=== PATIENT | female | born 1995 | race Caucasian/White ===

== ENCOUNTER 2018-10-02 11:28 | Observation (INO) ==
[2018-10-02] MEDS ORDERED: RINGER'S SOLUTION,LACTATED 1,000 ML IV PRN (11:34)
[2018-10-02 11:38] VITALS: BP 134/73
[2018-10-02] MEDS ORDERED: BETAMETHASONE ACETATE,SOD PHOS 6 MG/ML VIAL IM ONE (12:16)
--- NOTE | 2018-10-02 12:23 | HP ---
Chief Complaint - Chief Complaint Date of Service: 10/02/18 Time of Service: 12:07 Chief Complaint: contractions History of Present Illness: The patient was seen today for a routine obstetrical visit. She presented for her routine NST. NST was nonreactive and she was sent to labor and delivery for a BPP. The BPP score was 6/10 and for that reason she was sent to labor and delivery for further monitoring. She still reports ctx q 3 minutes. She denies loss of fluid or vaginal bleeding. Fetus is active. Medical History (Updated 10/02/18 @ 09:52 by Gini Quesada MD) Borderline personality disorder (Chronic) Anxiety disorder (Acute) Major depressive disorder, recurrent, moderate (Acute) DVT of lower extremity (deep venous thrombosis) Onset Date: 08/05/15 Right calf 08/05/15 left calf 03/29/18 GERD (gastroesophageal reflux disease) Onset Date: 06/26/15 Obesity Onset Date: 10/29/15 Wears glasses High risk medication use Onset Date: 10/29/15 Coumadin d/c @ 5 wks gestation Placenta previa Onset Date: ~2015 delivery Onset Date: 05/04/16 @ 36 wks. [facility] Yeast infection of the skin Onset Date: 10/29/15 Yeast infection of the vagina Onset Date: 05/06/15 Surgical History: Surgical History (Updated 04/11/18 @ 13:26 by Angela Coto LPN) Previous section Onset Date: 05/04/16 Placenta Previa-[facility] Family History: Family History (Updated 11/27/17 @ 17:41 by Madelin Carlin RN) Father Unknown family medical history Mother Asthma Social History: Preferred Language Singaporean Smoking Status Never smoker (Last Updated 10/02/18 @ 09:54 by Gini Quesada MD) No Social History Section defined Review Of Systems (GEN) - Review of Systems Generalized/Overall Review: Present: No Symptoms Reported Misc: All systems neg except as marked Immunizations: IMMUNIZATION HX Immunizations Up to Date Yes History of Influenza Vaccine No Allergies/Adverse Reactions: Allergies Allergy/AdvReac Type Severity Reaction Status Date / Time No Known Allergies Allergy Verified 10/02/18 11:32 Home Medications: HOME MEDICATIONS Acetaminophen [Tylenol] 325 mg PO PRN PRN 06/29/15 [Last Taken 06/28/15] enoxaparin 120 mg/0.8 mL subcutaneous syringe 120 mg SUBCUT Q12H 04/11/18 [Last Taken Unknown] vitamin,calcium,tiskxvqb-apej-ykzog acid tablet 1 tab PO DAILY 04/11/18 [Last Taken Unknown] buspirone 10 mg tablet 10 mg PO BID 04/18/18 [Last Taken Unknown] fluticasone 50 mcg/actuation nasal spray,suspension 2 spray ADEEL DAILY PRN 04/18/18 [Last Taken Unknown] loratadine 10 mg tablet 10 mg PO DAILY 04/18/18 [Last Taken Unknown] cyclobenzaprine 10 mg tablet 10 mg PO TID PRN #20 tab 09/11/18 [Last Taken Unknown] ranitidine 150 mg tablet 150 mg PO BID PRN #60 tab 09/11/18 [Last Taken Unknown] sertraline 50 mg tablet 100 mg PO DAILY tab 10/02/18 [Last Taken Unknown] Exam - Exam Vital Signs: Vital Signs - Last Taken Temp 36.0 C 10/02/18 11:36 Pulse 96 10/02/18 11:36 Resp 20 10/02/18 11:36 BP 134/73 10/02/18 11:36 Pulse Ox 98 10/02/18 11:36 Constitutional: Present: Alert, Oriented x3, Cooperative, No distress Respiratory: Present: chest non-tender, lungs clear, normal breath sounds Cardiovascular/Chest: Present: regular rate, rhythm, no murmur Abdomen: Present: soft, nontender, nondistended Extremity: Present: non-tender, no calf tenderness Skin Exam: Present: normal color, warm/dry, no cyanosis Appearance: Present: appropriate appearance Eye contact: Present: cooperative Thoughts: Present: normal thought pattern Assessment/Plan - Narrative Narrative: 22 year old @ 32w 6d with a concerning heart tracing and BPP 6/10. On the tracing there are no accelerations and there was a late deceleration one time. Variability is minimal. The patient is having ctx every 1-3 minutes. Cervix is closed. Give one dose of steroids since there could be a likelihood of delivery based on the heart rate tracing Will transfer to [facility] Follow-up as scheduled on if discharged from [facility]
--- NOTE | 2018-10-02 12:26 | DS ---
Transfer Discharge Summary - Diagnosis(s)/Problems (1) Non-reassuring heart rate with late deceleration Problem: Acute (2) contractions Problem: Acute - Course Description of Stay: The patient has been on the monitored for about an hour. There are no accelerations, the variability is minimal, and there was a late deceleration. BPP was 6/10. For that reason the patient was transferred to [facility]. Procedures Performed: none - Medications Medications: Active Medications Lactated Ringer's (Lactated Ringers) 1,000 mls @ 999 mls/hr IV .Q1H1M PRN PRN Reason: HYDRATION Stop: 11/01/18 11:35 Last Admin: 10/02/18 11:54 Dose: 999 mls/hr Documented by: - Disposition Disposition: Home self-care Condition: Stable
[2018-10-02] MEDS ORDERED: DEXTROSE 5%-LACTATED RINGERS 1,000 ML IV PRN (13:04)
== END 2018-10-02 15:29 | disposition short-term general hospital (02) ==
LOC: OB 11:28 → OBCLINIC 11:28
PROVIDERS: ADMIT Obstetrics & Gynecology; ATTEND Obstetrics & Gynecology
CPT/HCPCS: 59025; 96372

== ENCOUNTER 2018-10-07 00:34 | Inpatient (IN) ==
[2018-10-07 01:05] LABS: Hematocrit 35.2 % (37.0-47.0); Hemoglobin 11.7 gm/dL (12.5-16.0); Mean Cell Volume 88.4 fl (78-100); Mean Corpuscular Hemoglobin 29.4 pg (27-31); Mean Corpuscular Hgb Conc 33.2 g/dl (32-36); Mean Platelet Volume 10.9 fl (8-12.5); Neutrophil # 9.2 K/mm3 (1.3-6.0); Neutrophil % 78.5 % (42-75.0); Platelet Count 150 K/mm3 (150-450); Red Blood Count 3.98 M/mm3 (4.2-5.4); Red Cell Distribution Width 14.5 % (11.5-14.0); White Blood Count 11.7 K/mm3 (4.0-10.5)
[2018-10-07] MEDS ORDERED: OXYTOCIN 20 UNITS in RINGER'S SOLUTION,LACTATED 1,000 ML IV ONE ×2 (01:09→02:37)
[2018-10-07] MEDS ORDERED: RINGER'S SOLUTION,LACTATED 1,000 ML IV PRN ×2 (01:09)
[2018-10-07] MEDS ORDERED: ceFAZolin SODIUM 3 GM in DEXTROSE 5 % IN WATER 100 ML IV ONE ×2 (01:09)
--- NOTE | 2018-10-07 01:09 | HP ---
Chief Complaint - Chief Complaint Date of Service: 10/07/18 Time of Service: 00:52 Chief Complaint: Large amount of vaginal bleeding and loss of fluid, contractions History of Present Illness: The patient is a 22 year old @ 33w 4d who presented from home complaining of a large amount of bleeding at home as well as a large amount of loss of fluid. She reports regular contractions every 2-3 minutes. Fetus is active. Medical History (Updated 10/02/18 @ 12:26 by Gini Quesada MD) Borderline personality disorder (Chronic) Anxiety disorder (Acute) Major depressive disorder, recurrent, moderate (Acute) DVT of lower extremity (deep venous thrombosis) Onset Date: 08/05/15 Right calf 08/05/15 left calf 03/29/18 GERD (gastroesophageal reflux disease) Onset Date: 06/26/15 Obesity Onset Date: 10/29/15 Wears glasses High risk medication use Onset Date: 10/29/15 Coumadin d/c @ 5 wks gestation Placenta previa Onset Date: ~2015 delivery Onset Date: 05/04/16 @ 36 wks. [facility] Yeast infection of the skin Onset Date: 10/29/15 Yeast infection of the vagina Onset Date: 05/06/15 Surgical History: Surgical History (Updated 10/02/18 @ 12:23 by Gini Quesada MD) Previous section Onset Date: 05/04/16 Placenta Previa-[facility] Family History: Family History (Updated 11/27/17 @ 17:41 by Madelin Carlin RN) Father Unknown family medical history Mother Asthma Social History: Preferred Language Nepalese Smoking Status Never smoker (Last Updated 10/02/18 @ 09:54 by Gini Quesada MD) No Social History Section defined Review Of Systems (GEN) - Review of Systems Generalized/Overall Review: Present: No Symptoms Reported Abdominal: Present: Abdominal Pain Misc: All systems neg except as marked Immunizations: IMMUNIZATION HX Immunizations Up to Date Yes History of Influenza Vaccine No Allergies/Adverse Reactions: Allergies Allergy/AdvReac Type Severity Reaction Status Date / Time No Known Allergies Allergy Verified 10/02/18 11:32 Home Medications: HOME MEDICATIONS Acetaminophen [Tylenol] 325 mg PO PRN PRN 06/29/15 [Last Taken 10/05/18] enoxaparin 120 mg/0.8 mL subcutaneous syringe 120 mg SUBCUT Q12H 12/05/18 [Last Taken 10/05/18] fluticasone 50 mcg/actuation nasal spray,suspension 2 spray ADEEL DAILY PRN 04/18/18 [Last Taken 10/05/18] cyclobenzaprine 10 mg tablet 10 mg PO TID PRN #20 tab 09/11/18 [Last Taken 10/05/18] ranitidine 150 mg tablet 150 mg PO BID PRN #60 tab 09/11/18 [Last Taken 10/05/18] Vits96/Iron Fum/Folic [ S] 1 tab PO DAILY 10/02/18 [Last Taken 10/05/18] sertraline 50 mg tablet 100 mg PO DAILY tab 10/02/18 [Last Taken 10/05/18] Buspirone 10 mg PO BID 10/06/18 [Last Taken 10/05/18] Exam - Exam Vital Signs: 36.4 C 22 109 97% 120/66 Constitutional: Present: Alert, Oriented x3, Cooperative, No distress Respiratory: Present: lungs clear, normal breath sounds Cardiovascular/Chest: Present: regular rate, rhythm, no murmur Abdomen: Present: soft, nondistended, tender Extremity: Present: non-tender, no calf tenderness Skin Exam: Present: normal color, warm/dry, no cyanosis Appearance: Present: appropriate appearance Eye contact: Present: cooperative Thoughts: Present: normal thought pattern Assessment/Plan - Narrative Narrative: 22 year old @ 33w 4d in labor with possible abruption as well FSE placed to monitor the baby while getting ready for delivery. Meconium-stained amniotic fluid was noted. The patient's cervix was 2 cm. Unable to do nitrazine due to bleeding. The patient's abdomen is tender which in addition to the vaginal bleeding is suspicious for placental abruption GBS status unknown The patient received steroids 10/02 and 10/03 due to the heart tracing All risks, benefits, and alternatives of the procedure were explained to the patient and the patient consented to the procedure. The patient had previously signed a salpingectomy consent. She desires to proceed with salpingectomy even with the understanding that with a delivery the possibility of survival might be decreased
[2018-10-07] MEDS ORDERED: NORMAL SALINE 1,000 ML IV ONE (02:06)
[2018-10-07] MEDS ORDERED: SIMETHICONE 80 MG TAB.CHEW PO PRN (02:37)
[2018-10-07] MEDS ORDERED: ONDANSETRON HCL/PF 2 MG/ML VIAL IV PRN (02:37)
[2018-10-07] MEDS ORDERED: RINGER'S SOLUTION,LACTATED 1,000 ML IV ONE (02:37)
[2018-10-07] MEDS ORDERED: BISACODYL 10 MG SUPP.RECT RC PRN (02:37)
[2018-10-07] MEDS ORDERED: IBUPROFEN 800 MG TABLET PO PRN (02:37)
[2018-10-07] MEDS ORDERED: diphenhydrAMINE HCL 25 MG CAPSULE PO PRN (02:37)
[2018-10-07] MEDS ORDERED: SENNOSIDES 8.6 MG TABLET PO PRN (02:37)
--- NOTE | 2018-10-07 03:00 | OR ---
Operative Report - Dictated Report Narrative: Preoperative diagnosis: IUP @ 33w 4 d, labor, PPROM, placental abruption, meconium stained amniotic fluid, tachycardia Postoperative diagnosis: same and loose nuchal cord Procedure: repeat delivery, bilateral salpingectomy Surgeon: Dr. Quesada Anesthesia: spinal Anesthesiologist: Antoine Hamilton CRNA Date of delivery: 10/07/2018 Time of delivery: 0145 Gender: female weight: 2463 grams APGARS: 8/9 Description of the procedure: The patient was taken to the operating room for an urgent delivery for the above stated reasons. Spinal anesthesia was placed. She was prepped and draped in the supine position in the standard surgical fashion. A Pfannestiel skin incision was made following the previous incision. The incision was carried through the subcutaneous tissue. The fascia was incised in the midline. The fascial incision was extended laterally. The fascia was dissected off the underlying rectus muscle superiorly. Significant scarring was noted. The peritoneum was entered bluntly. A large Puma retractor was placed. The bladder was adherent to the lower uterine segment. The lower uterine segment was incised in a low transverse fashion away from the bladder while releasing the bladder adhesions. The uterine incision was extended bluntly. The head was delivered atraumatically followed by the remainder of the body. A loose nuchal cord was reduced. The cord was clamped and cut and the was handed off to the attending pediatric staff. The placenta was delivered by placing my hand in the uterus as the cord was thin so this was done to prevent uterine inversion and cord avulsion. There was a moderate amount of bleeding noted. The uterus was cleared of all clots and debris. The uterus was closed with a single layer of 0-vicryl. Several additional figure of eight sutures were placed for hemostasis. The bladder flap was closed with 2- 0 vicryl for compression and hemostasis. The left fallopian tube was identified by following it to the fimbriated end. The left ovary appeared normal. The left tubes was transected by following along the mesosalpinx. The same procedure was repeated on the right. The tubal removal sites were inspected and appeared completely hemostatic. There was a lot of oozing secondary to the patient's lovenox therapy. Audi was placed over the uterine incision and no further bleeding was noted. Next the fascia was made hemostatic. The rectus muscles were made hemostatic. On the left side several figure of eight sutures were placed over the rectus muscles for hemostatis from a perforating vessel. After this Audi was also placed over the rectus muscles and fascia for additional hemostasis. The fascia was closed with 1-0 vicryl after ensuring hemostasis of all the layers inferior to the fascia. The fascial edges were also made hemostatic with electrocautery. The subcutaneous tissue was made hemostatic initially with electrocautery and Audi was also used in this area for additional hemostasis. The skin was closed with 3-0 vicryl on a Keon needle. Dermabond was placed over the incision. A pressure dressing was applied. EBL: 1000 mL Complications: none Specimens: placenta, fallopian tubes
--- NOTE | 2018-10-07 03:13 | ANES ---
Anesthesia Pre Procedure Eval Vitals/Labs: Last Vital Signs Temp 36.9 C 10/07/18 03:08 Pulse 99 10/07/18 03:08 Resp 14 10/07/18 03:08 BP 111/45 10/07/18 03:08 Pulse Ox 99 10/07/18 03:08 HOME MEDICATIONS Acetaminophen [Tylenol] 325 mg PO PRN PRN 06/29/15 [Last Taken 10/05/18] enoxaparin 120 mg/0.8 mL subcutaneous syringe 120 mg SUBCUT Q12H 04/11/18 [Last Taken 10/05/18] fluticasone 50 mcg/actuation nasal spray,suspension 2 spray ADEEL DAILY PRN 04/18/18 [Last Taken 10/05/18] cyclobenzaprine 10 mg tablet 10 mg PO TID PRN #20 tab 09/11/18 [Last Taken 10/05/18] ranitidine 150 mg tablet 150 mg PO BID PRN #60 tab 09/11/18 [Last Taken 10/05/18] Vits96/Iron Fum/Folic [ S] 1 tab PO DAILY 10/02/18 [Last Taken 10/05/18] sertraline 50 mg tablet 100 mg PO DAILY tab 10/02/18 [Last Taken 10/05/18] Buspirone 10 mg PO BID 10/06/18 [Last Taken 10/05/18] Allergies/Adverse Reactions: Allergies Allergy/AdvReac Type Severity Reaction Status Date / Time No Known Allergies Allergy Verified 10/07/18 00:55 - Planned Procedure Planned Procedure: LABOR Medication List Reviewed:: Yes Allergies Verified: Yes Medical History (Updated 10/07/18 @ 01:09 by Gini Quesada MD) Borderline personality disorder (Chronic) Anxiety disorder (Acute) Major depressive disorder, recurrent, moderate (Acute) DVT of lower extremity (deep venous thrombosis) Onset Date: 08/05/15 Right calf 08/05/15 left calf 03/29/18 GERD (gastroesophageal reflux disease) Onset Date: 06/26/15 Obesity Onset Date: 10/29/15 Wears glasses High risk medication use Onset Date: 10/29/15 Coumadin d/c @ 5 wks gestation Placenta previa Onset Date: ~2015 delivery Onset Date: 05/04/16 @ 36 wks. [facility] Yeast infection of the skin Onset Date: 10/29/15 Yeast infection of the vagina Onset Date: 05/06/15 Surgical History (Updated 10/02/18 @ 12:23 by Gini Quesada MD) Previous section Onset Date: 05/04/16 Placenta Previa-[facility] I Family History (Updated 11/27/17 @ 17:41 by Madelin Carlin RN) Father Unknown family medical history Mother Asthma - Family Anesthesia History Family History:: no untoward family reactions to anesthesia - Airway/Neck/Teeth Within Normal Limits:: Yes Teeth Condition: intact Neck Exam: full range of motion Mallampatti Score: 2 Thyromental (T-M) distance: > 6 cm Mandibulo Hyoid distance: > 3 cm - Respiratory Respiratory Physical: lungs clear Smoking Status: Never smoker Sleep Apnea currently treated: No Sleep Apnea by current assessment: No - Cardiovascular Cardiac History: PVD Tolerate Activity: Fair Heart Sounds: S1 & S2, Regular - Anesthesia Assessment and Plan ASA Class: PS, II, E Anesthesia Type Plan: Spinal - TAP block for postop analgesia Planned difficult intubation/equipment available: No
--- NOTE | 2018-10-07 03:13 | ANES ---
Post Anesthesia Assessment - Vital Signs Vitals: Last Vital Signs Temp 36.9 C 10/07/18 03:08 Pulse 99 10/07/18 03:08 Resp 14 10/07/18 03:08 BP 111/45 10/07/18 03:08 Pulse Ox 99 10/07/18 03:08 Airway Patency: Normal - Mental Status Level Of Consciousness: Awake - Pain Level Pain Score: 0 - N/V Assessment Nausea/Vomiting Presence: None Dehydration:: No
--- NOTE | 2018-10-07 03:13 | ANES ---
Post Anesthesia Discharge - Transfer of Care Transfer of Care handoff given to nurse: Yes - Discharge from PACU Discharge from PACU when meets criteria: Yes
--- NOTE | 2018-10-07 03:16 | ANES ---
Anesthesia Procedure Note Procedure Note: ANESTHESIA PROCEDURE NOTE Date of procedure: 10/07/2018. Time of procedure: 50. Performed by: Antoine Hamilton CRNA Global Climate Change Researcher: Candace Armas RN . Preprocedure diagnosis: Status post section. Desire for postoperative analgesia. Post procedure diagnosis: Same. Procedure: Ultrasound-guided bilateral tap block Indications: Postoperative analgesia. Findings: Patient brought to the PACU. Patient placed in a supine position. Patient's right abdominal wall was prepped with ChloraPrep. Ultrasound was utilized to identify the fascial layer between the internal oblique and trans- abdominus muscles. A 20-gauge 4 inch regional block needle was advanced under ultrasound guidance until tip of needle was placed just posterior to fascial layer. 20 mL of 0.25% Marcaine with epinephrine 1 200,000 was injected with adequate spread of local anesthesia noted. Procedure was then repeated on patient's left side. EBL: Minimal. Fluids: N/A. Specimen: N/A. Post procedure condition: The patient tolerated the procedure well. No complications were noted. Thank you for this consultation Antoine Hamilton CRNA
[2018-10-07] MEDS: HYDROcodone/ACETAMINOPHEN 1 EACH TABLET PO PRN ×6 (03:39→23:46)
[2018-10-07 04:17] LABS: Cocaine Ur Negative (NEGATIVE); Urine Barbiturate Negative (NEGATIVE); Urine Benzodiazepines Negative (NEGATIVE); Urine Opiates Negative (NEGATIVE); Urine PCP Negative (NEGATIVE); Urine THC Negative (NEGATIVE)
[2018-10-07] MEDS: DOCUSATE SODIUM 100 MG CAPSULE PO SCH ×2 (21:30)
[2018-10-08] MEDS: DOCUSATE SODIUM 100 MG CAPSULE PO SCH ×2 (08:45→20:08)
[2018-10-08] MEDS: HYDROcodone/ACETAMINOPHEN 1 EACH TABLET PO PRN ×3 (08:45→20:07)
[2018-10-08 09:13] LABS: Hemoglobin 12.2 gm/dL (12.5-16.0); Mean Cell Volume 90.5 fl (78-100); Mean Corpuscular Hemoglobin 29.8 pg (27-31); Neutrophil # 11.7 K/mm3 (1.3-6.0); Neutrophil % 80.8 % (42-75.0); Platelet Count 169 K/mm3 (150-450); Red Blood Count 4.09 M/mm3 (4.2-5.4); Red Cell Distribution Width 14.6 % (11.5-14.0); White Blood Count 14.5 K/mm3 (4.0-10.5)
--- NOTE | 2018-10-08 11:31 | PN ---
Subjective - Date and Time Seen Date: 10/08/18 Time: 11:29 Subjective Narrative: Pt without complaints Objective Objective Narrative: See vital signs - Review of Systems Generalized/Overall Review: Reports: No Symptoms Reported Misc: All systems neg except as marked - Vitals Vitals: Last Vital Signs Temp 36.6 C 10/08/18 10:18 Pulse 101 H 10/08/18 10:18 Resp 18 10/08/18 10:18 BP 115/65 10/08/18 10:18 Pulse Ox 99 10/08/18 10:18 - Abnormal Lab Findings Abnormal Lab Findings: Abnormal Lab Results 10/08/18 Range/Units 09:11 WBC 14.5 H D (4.0-10.5) K/mm3 RBC 4.09 L (4.2-5.4) M/mm3 Hgb 12.2 L (12.5-16.0) gm/dL RDW 14.6 H (11.5-14.0) % Immature Gran # (Auto) 0.06 H (0.000-0.0310) K/mm3 Neutrophils % 80.8 H (42-75.0) % Lymphocytes % 11.0 L (20-51) % Neutrophils # 11.7 H (1.3-6.0) K/mm3 Monocytes # 1.1 H (0.0-1.0) k/mm3 - Exam Constitutional: Present: Alert, Oriented x3, Cooperative, No distress Abdomen: Present: soft, nontender, nondistended Extremity: Present: non-tender, no calf tenderness Skin Exam: Present: normal color, warm/dry, no cyanosis Appearance: Present: appropriate appearance Eye contact: Present: cooperative Thoughts: Present: normal thought pattern Cauti Physician Documentation - Urinary Catheter Management Urethral (Carter) Urethral Indwelling: No Date of Insertion: 10/07/18 Time of Insertion: 01:20 Date of Removal: 10/07/18 Time of Removal: 16:15 Assessment/Plan Plan Narrative: POD 1 s/p repeat delivery and salpingectomies Doing well Essentially normal hemoglobin. Restart lovenox today. Recheck CBC tomorrow Discharge tomorrow
[2018-10-08] MEDS: ENOXAPARIN SODIUM 60 MG/0.6 ML SYRG SC SCH ×2 (12:32→23:23)
[2018-10-08] MEDS: busPIRone HCL 5 MG TABLET PO SCH (20:58)
[2018-10-09 07:26] LABS: Hematocrit 34.2 % (37.0-47.0); Hemoglobin 11.1 gm/dL (12.5-16.0); Mean Cell Volume 91.2 fl (78-100); Mean Corpuscular Hemoglobin 29.6 pg (27-31); Mean Corpuscular Hgb Conc 32.5 g/dl (32-36); Mean Platelet Volume 10.5 fl (8-12.5); Neutrophil # 7.9 K/mm3 (1.3-6.0); Neutrophil % 73.5 % (42-75.0); Platelet Count 155 K/mm3 (150-450); Red Blood Count 3.75 M/mm3 (4.2-5.4); Red Cell Distribution Width 14.6 % (11.5-14.0); White Blood Count 10.8 K/mm3 (4.0-10.5)
[2018-10-09] MEDS: busPIRone HCL 5 MG TABLET PO SCH ×2 (08:49→21:19)
[2018-10-09] MEDS: DOCUSATE SODIUM 100 MG CAPSULE PO SCH ×2 (08:49→21:19)
[2018-10-09] MEDS ORDERED: SERTRALINE HCL 100 MG TABLET PO SCH (09:00)
[2018-10-09] MEDS: HYDROcodone/ACETAMINOPHEN 1 EACH TABLET PO PRN (09:45)
[2018-10-09] MEDS: ENOXAPARIN SODIUM 60 MG/0.6 ML SYRG SC SCH ×2 (11:29→22:59)
--- NOTE | 2018-10-09 13:22 | PN ---
Subjective - Date and Time Seen Date: 10/09/18 Time: 13:21 Subjective Narrative: Pt without complaints Objective Objective Narrative: See vital signs - Review of Systems Generalized/Overall Review: Reports: No Symptoms Reported Misc: All systems neg except as marked - Vitals Vitals: Last Vital Signs Temp 35.9 C L 10/09/18 11:32 Pulse 94 10/09/18 11:32 Resp 16 10/09/18 11:32 BP 132/68 10/09/18 11:32 Pulse Ox 93 10/09/18 11:32 - Abnormal Lab Findings Abnormal Lab Findings: Abnormal Lab Results 10/09/18 Range/Units 07:23 WBC 10.8 H D (4.0-10.5) K/mm3 RBC 3.75 L (4.2-5.4) M/mm3 Hgb 11.1 L (12.5-16.0) gm/dL Hct 34.2 L (37.0-47.0) % RDW 14.6 H (11.5-14.0) % Immature Gran % (Auto) 0.60 H (0.001-0.429) % Immature Gran # (Auto) 0.06 H (0.000-0.0310) K/mm3 Lymphocytes % 17.5 L (20-51) % Neutrophils # 7.9 H (1.3-6.0) K/mm3 - Exam Constitutional: Present: Alert, Oriented x3, Cooperative, No distress Cardiovascular/Chest: Present: regular rate, rhythm Abdomen: Present: soft, nontender, nondistended Extremity: Present: non-tender, no calf tenderness Skin Exam: Present: normal color, warm/dry, no cyanosis Appearance: Present: appropriate appearance Eye contact: Present: cooperative Thoughts: Present: normal thought pattern Cauti Physician Documentation - Urinary Catheter Management Urethral (Carter) Urethral Indwelling: No Date of Insertion: 10/07/18 Time of Insertion: 01:20 Date of Removal: 10/07/18 Time of Removal: 16:15 Assessment/Plan Plan Narrative: POD 2 s/p delivery Doing well Discharge home
[2018-10-09 19:04] VITALS: BP 138/65
== END 2018-10-09 23:20 | disposition home or self-care (01) | DRG 783 ==
LOC: OBCLINIC 00:34 → OB 00:48
PROVIDERS: ADMIT Obstetrics & Gynecology; ATTEND Obstetrics & Gynecology
CPT/HCPCS: 36415; 59025; 80307; 85025; 86850; 88302; 88307